=== PATIENT | male | born 1955 | race Caucasian/White ===

== ENCOUNTER 2018-09-14 10:09 | Emergency (ER) | payer MEDICARE, MEDICAID ==
[2018-09-14] MEDS ORDERED: Morphine 4 MG/ML VIAL ONE (10:32)
== END 2018-09-14 11:03 | disposition home or self-care (01) ==
LOC: SCSER 10:09
DX: G89.29 Other chronic pain (principal); M54.5 Low back pain; E11.40 Type 2 diabetes mellitus with diabetic neuropathy, unspecified; F32.9 Major depressive disorder, single episode, unspecified; F17.210 Nicotine dependence, cigarettes, uncomplicated; Z79.899 Other long term (current) drug therapy; Z79.82 Long term (current) use of aspirin; Z79.84 Long term (current) use of oral hypoglycemic drugs
CPT/HCPCS: 96372; J2270